=== PATIENT | male | born 1985 | race Caucasian/White ===

== ENCOUNTER 2023-07-19 13:40 | Day surgery (SDC) | payer OTHER ==
[2023-07-19] MEDS ORDERED: LIDOCAINE HCL 2% 100 MG/5 ML IJ ONE (13:41)
[2023-07-19] MEDS ORDERED: Versed 2 MG/2 ML Injection ONE (15:18)
[2023-07-19] MEDS ORDERED: DIPRIVAN 200 MG/20 ML IV ONE (15:18)
[2023-07-19] MEDS ORDERED: Lactated Ringers 1,000 ML IV ONE (15:32)
--- NOTE | 2023-07-19 16:43 | XRAY ---
Indication: Bilateral L4-S1 MBB. Intraoperative fluoroscopy provided for 22 seconds. Single digital spot image submitted for interpretation demonstrates posterior needle tips projecting over the expected left and right L4-S1 nerve roots. Correlate with intraoperative findings/report.
--- NOTE | 2023-07-19 16:47 | XRAY ---
22 seconds of fluoroscopy was used in surgery for a bilateral L4-S1 MBB.
== END 2023-07-19 15:45 | disposition home or self-care (01) ==
LOC: SDC-PAIN 13:40
PROVIDERS: ATTEND Psychiatry & Neurology Pain Medicine
DX: M47.816 Spondylosis without myelopathy or radiculopathy, lumbar region (principal)
CPT/HCPCS: 64493; 64494; 72020; 77002; J2250; J2704

== ENCOUNTER 2023-08-09 13:37 | Day surgery (SDC) | payer OTHER ==
[2023-08-09] MEDS ORDERED: BUPIVACAINE 0.5% VIAL IJ ONE (13:38)
[2023-08-09] MEDS ORDERED: Lactated Ringers 1,000 ML IV ONE (14:55)
[2023-08-09] MEDS ORDERED: DIPRIVAN 200 MG/20 ML IV ONE (14:58)
--- NOTE | 2023-08-09 16:30 | XRAY ---
Indication: Bilateral L4-S1 MBB. Intraoperative fluoroscopy provided for 10 seconds. Single digital spot image submitted for interpretation demonstrates posterior needle tips projecting over the expected left and right L4-S1 nerve roots. Correlate with intraoperative findings/report.
--- NOTE | 2023-08-09 16:47 | XRAY ---
10 seconds of fluoroscopy was used in surgery for a bilateral L4-S1 MBB.
== END 2023-08-09 15:35 | disposition home or self-care (01) ==
LOC: SDC-PAIN 13:37
PROVIDERS: ATTEND Psychiatry & Neurology Pain Medicine
DX: M47.816 Spondylosis without myelopathy or radiculopathy, lumbar region (principal)
CPT/HCPCS: 64493; 64494; 72020; 77002; J2704

== ENCOUNTER 2023-09-13 11:39 | Day surgery (SDC) | payer OTHER ==
[2023-09-13] MEDS ORDERED: Depo-Medrol 40 MG/ML IM ONE (11:40)
[2023-09-13] MEDS ORDERED: BUPIVACAINE 0.5% VIAL IJ ONE (11:40)
[2023-09-13] MEDS ORDERED: LIDOCAINE HCL 1% 50 MG/5 ML VL PF IJ ONE (11:40)
[2023-09-13] MEDS ORDERED: DIPRIVAN 200 MG/20 ML IV ONE ×2 (14:17→14:21)
[2023-09-13] MEDS ORDERED: Lactated Ringers 1,000 ML IV ONE (14:57)
--- NOTE | 2023-09-13 16:42 | XRAY ---
Indication: Right L4-S1 RFA. Intraoperative fluoroscopy provided for 18 seconds. 3 digital spot image submitted for interpretation demonstrates posterior needle tips projecting over the expected right L4-S1 nerve roots. Correlate with intraoperative findings/report.
--- NOTE | 2023-09-13 17:06 | XRAY ---
18 seconds of fluoroscopy was used in surgery for a right L4-S1 RFA.
== END 2023-09-13 14:40 | disposition home or self-care (01) ==
LOC: SDC-PAIN 11:39
PROVIDERS: ATTEND Psychiatry & Neurology Pain Medicine
DX: M47.816 Spondylosis without myelopathy or radiculopathy, lumbar region (principal)
CPT/HCPCS: 64635; 64636; 72100; 77002; J1010; J2001; J2704

== ENCOUNTER 2023-09-20 11:10 | Day surgery (SDC) | payer OTHER ==
[2023-09-20] MEDS ORDERED: XYLOCAINE-MPF 1% 5ML SDV IJ ONE (11:11)
[2023-09-20] MEDS ORDERED: Depo-Medrol 40 MG/ML IM ONE (11:11)
[2023-09-20] MEDS ORDERED: BUPIVACAINE 0.5% VIAL IJ ONE (11:11)
[2023-09-20] MEDS ORDERED: DIPRIVAN 200 MG/20 ML IV ONE ×2 (12:47→12:57)
[2023-09-20] MEDS ORDERED: Versed 2 MG/2 ML Injection ONE (12:48)
[2023-09-20] MEDS ORDERED: Lactated Ringers 1,000 ML IV ONE (13:01)
--- NOTE | 2023-09-20 13:57 | XRAY ---
Indication: Left L4-S1 RFA. Intraoperative fluoroscopy was provided for 18 seconds. 4 digital spot image submitted for interpretation demonstrates posterior needle tips projecting over expected left L4-S1 nerve roots. Correlate with intraoperative findings/report.
--- NOTE | 2023-09-21 14:46 | XRAY ---
18 seconds of fluoroscopy was used in surgery for a left L4-S1 RFA.
== END 2023-09-20 13:17 | disposition home or self-care (01) ==
LOC: SDC-PAIN 11:10
PROVIDERS: ATTEND Psychiatry & Neurology Pain Medicine
DX: M47.816 Spondylosis without myelopathy or radiculopathy, lumbar region (principal)
CPT/HCPCS: 64635; 64636; 72100; 77002; J1010; J2250; J2704